=== PATIENT | female | born 1985 | race Caucasian/White ===

== ENCOUNTER 2019-01-26 06:00 | Outpatient (RCR) | payer BC, SELFPAY | END 2019-02-21 00:01 | LOC: SPT 06:00 | PROVIDERS: Family Provider Nurse Practitioner Family; Visit Provider Student in an Organized Health Care Education/Training Program | DX: Z47.89 Encounter for other orthopedic aftercare (principal) | CPT/HCPCS: 97110 ×6; 97161 ==

== ENCOUNTER 2019-02-22 06:00 | Outpatient (RCR) | payer BC, SELFPAY | END 2019-03-24 23:59 | disposition home or self-care (01) | LOC: TPT 06:00 | PROVIDERS: Family Provider Nurse Practitioner Family; PCP Nurse Practitioner Family; Referring Provider Student in an Organized Health Care Education/Training Program; Visit Provider Student in an Organized Health Care Education/Training Program | DX: Z47.89 Encounter for other orthopedic aftercare (principal) | CPT/HCPCS: 97110; 97164 ==

== ENCOUNTER → 2019-03-21 12:39 | Outpatient (BNVA) | payer BC, SELFPAY | PROVIDERS: Family Provider Nurse Practitioner Family; PCP Nurse Practitioner Family; Visit Provider Family Medicine | DX: M46.1 Sacroiliitis, not elsewhere classified (principal); R79.82 Elevated C-reactive protein (CRP); M46.90 Unspecified inflammatory spondylopathy, site unspecified | CPT/HCPCS: 82565; 84450; 84460; 85025; 85651; 86140 ==

== ENCOUNTER 2019-03-25 06:00 | Outpatient (RCR) | payer BC, SELFPAY | END 2019-04-22 23:59 | disposition home or self-care (01) | LOC: TPT 06:00 | PROVIDERS: Family Provider Nurse Practitioner Family; PCP Nurse Practitioner Family; Visit Provider Nurse Practitioner Family | DX: M76.822 Posterior tibial tendinitis, left leg (principal) | CPT/HCPCS: 97110 ==

== ENCOUNTER 2022-01-05 06:00 | Outpatient (CLI) | payer BC, SELFPAY | END 2022-01-05 06:01 | disposition home or self-care (01) | LOC: SPT 01-17 10:24 | PROVIDERS: Family Provider Nurse Practitioner Family; PCP Nurse Practitioner Family; Visit Provider Podiatrist Foot & Ankle Surgery | DX: Z46.89 Encounter for fitting and adjustment of other specified devices (principal); M79.671 Pain in right foot | CPT/HCPCS: 97760; L3030; L4361 ==

== ENCOUNTER → 2022-01-05 09:24 | Outpatient (BNVA) | payer BC, SELFPAY | PROVIDERS: Family Provider Nurse Practitioner Family; PCP Nurse Practitioner Family; Visit Provider Podiatrist Foot & Ankle Surgery | DX: M76.821 Posterior tibial tendinitis, right leg (principal); M25.471 Effusion, right ankle; M21.41 Flat foot [pes planus] (acquired), right foot; M21.42 Flat foot [pes planus] (acquired), left foot | CPT/HCPCS: 73630 ==

== ENCOUNTER 2022-02-02 08:04 | Outpatient (CLI) | payer BC, SELFPAY ==
--- NOTE | 2022-02-02 08:00 | MR_ITS ---
WS: [id number] MRI RIGHT FOOT with and without CONTRAST. COMPARISON: Radiograph 01/05/2022 Multiplanar, multisequence imaging is performed with and without contrast. MultiHance 20 mL IV. 8mm calcaneal spur with no evidence for acute plantar fasciitis. The Achilles tendon is normal. No fr acture or marrow edema. No widening of the Lisfranc joint. Lisfranc ligament appears intact. Peroneus longus and brevis normal course and caliber. Flexor hallucis longus is normal. No signal abnormaliti es along the course of the ligaments or tendons. No joint effusion. No enhancing masses. MR/MR foot RT wo/w con [id number] IMPRESSION: 1. 8 mm calcaneal spur. No evidence for acute plantar fasciitis. 2. No marrow edema or fracture. 3. No signal abnormality at Lisfranc ligament.
[2022-02-02] MEDS: gadobenate dimeglumine 20 mL vial IV (08:38)
--- NOTE | 2022-02-02 10:15 | MR_ITS ---
WS: [id number] MRI RIGHT ANKLE with and without CONTRAST. COMPARISON: None Multiplanar, multisequence imaging is performed with and without contrast. MultiHance 20 mL IV. There is soft tissue edema noted posterior to the flexor hallucis longus at the level of the ankle. T he edema extends along the posterior peroneus tendon sheath. This fluid is better seen on the ankle M RI as compared to the entire foot MRI. No tear or fluid within the tendon sheath. The Achilles tendon is normal signal. The edema is within the pre-Achilles fat pad. There is a small amount of fluid tiara t extends into the tarsal sinus. The cervical ligament appears intact. No fractures or marrow signal abnormality. There is also some increased edema within the posterior talofibular ligament. On the postcontrast images there is mild enhancement in the region of the edema suggests an inflammat ory process. No soft tissue mass. MR/MR ankle RT wo/w con [id number] IMPRESSION: 1. Soft tissue edema with enhancement in the pre-Achilles fat pad and posterio r to the flexor hallucis longus at the level of the ankle. The Achilles tendon appears normal. 2. There is additional edema with enhancement extending into the sinus Tarsi a nd along the cervical ligament. No enhancing mass. Probably postinflammatory. 3. Moderate increased signal and edema along the posterior talofibular ligamen t with mild sprain. No full-thickness tear.
== END 2022-02-02 08:05 | disposition home or self-care (01) ==
LOC: RAD 08:05
PROVIDERS: Family Provider Nurse Practitioner Family; PCP Nurse Practitioner Family; Visit Provider Podiatrist Foot & Ankle Surgery
DX: M25.571 Pain in right ankle and joints of right foot (principal); M79.671 Pain in right foot; R60.0 Localized edema; M77.31 Calcaneal spur, right foot
CPT/HCPCS: 73720; 73723; A9577

== ENCOUNTER 2022-03-11 11:59 | Outpatient (CLI) | payer BC, SELFPAY ==
--- NOTE | 2022-03-11 12:07 | XRR_ITS ---
PROCEDURE INFORMATION: Exam: XR Chest Exam date and time: 03/11/2022 12:09 PM Age: 36 years old Clinical indication: Condition or disease; Lung condition and disease; Pneumonia; Additional info: Pneumonia due to infectious organism TECHNIQUE: Imaging protocol: Radiologic exam of the chest. Views: 2 views. COMPARISON: No relevant prior studies available. FINDINGS: Lungs: Unremarkable. No consolidation. Pleural spaces: Unremarkable. No pleural effusion. No pneumothorax. Heart/Mediastinum: Unremarkable. No cardiomegaly. Bones/joints: Unremarkable. XR/XR chest 2V* [id number] IMPRESSION: No acute findings.
== END 2022-03-11 12:00 | disposition home or self-care (01) ==
PROVIDERS: PCP Nurse Practitioner Family; Visit Provider Nurse Practitioner Family
DX: J18.9 Pneumonia, unspecified organism (principal)
CPT/HCPCS: 71046